=== PATIENT | male | born 1960 | race Hispanic/Latino ===

== ENCOUNTER 2020-10-12 18:53 | Emergency (ER) | payer SELFPAY ==
[~2020-10-12] VITALS: Ht 182.9 cm; Wt 115.7 kg
[2020-10-12] MEDS ORDERED: NORCO 5-325 TA1 EACH PO (22:28)
[2020-10-12] MEDS ORDERED: CIPRO500 MG PO (22:28)
[2020-10-12 22:29] VITALS: BP 138/79
== END 2020-10-12 22:31 | disposition home or self-care (01) ==
LOC: ER 19:18
DX: S92.515A Nondisplaced fracture of proximal phalanx of left lesser toe(s), initial encounter for closed fracture (principal); W20.8XXA Other cause of strike by thrown, projected or falling object, initial encounter; Y93.H9 Activity, other involving exterior property and land maintenance, building and construction; Y92.008 Other place in unspecified non-institutional (private) residence as the place of occurrence of the external cause; I10 Essential (primary) hypertension; E11.9 Type 2 diabetes mellitus without complications
CPT/HCPCS: 99283